=== PATIENT | female | born 1950 | race Two or more races ===

== ENCOUNTER 2017-11-11 16:15 | Inpatient (IN) | payer OTHER ==
[~2017-11-11] VITALS: Ht 160 cm; Wt 84.0 kg
[~2017-11-11 16:15] MED LIST: ALPR1TAB2 PO; AMIT10TA6; GABA-521; HYDR-2035; INSU70IN9 SC; LORA-655; MECL25CH20
[2017-11-11 17:47] LABS: Basophils # (auto) 0.1 uL; Basophils % (auto) 0.6 % (0.0-2.0); Eosinophils # (auto) 0 uL; Hematocrit 50.3 % (36.0-46.0); Hemoglobin 16.8 g/dL (12.2-16.2); Lymphocytes # (auto) 1.3 uL; Lymphocytes % (auto) 9.2 % (10.0-50.0); Mean Corpuscular Hgb Conc. 33.3 g/dL (32.0-36.0); Monocytes # (auto) 0.6 uL; Monocytes % (auto) 4.3 % (0.0-12.0); Neutrophils # (auto) 11.9 uL; Neutrophils % (auto) 85.9 % (37.0-80.0); Nucleated Red Blood Cells % 0.1 %; Platelet Count (auto) 247 10^3/uL (140-450); Red Cell Distribution Width 15.1 % (11.8-14.3); White Blood Cell 13.8 10^3/uL (4.4-10.8)
[2017-11-11 18:01] LABS: Alanine Aminotransferase 27 U/L (13-56); Albumin 3.8 g/dL (3.4-5.0); Anion Gap 15 (5-15); Calcium 9.6 mg/dL (8.5-10.1); Carbon Dioxide 21 mmol/L (21-32); Chloride 104 mmol/L (98-107); Glucose 398 mg/dL (74-106); Potassium 4.2 mmol/L (3.5-5.1); Sodium 140 mmol/L (136-145)
[2017-11-11 18:06] LABS: Alkaline Phosphatase 156 U/L (45-117); Aspartate Aminotransferase 14 U/L (15-37); BUN/Creatinine Ratio 22.2; Bilirubin, Total 0.6 mg/dL (0.2-1.0); Blood Urea Nitrogen 30 mg/dL (7-18); GFR African American 50 mL/min; GFR Non-African American 42 mL/min; Total Protein 8.3 g/dL (6.4-8.2)
[2017-11-11] MEDS ORDERED: SODIUM CHLORIDE 0.9% 1,000 ML IVB ONE (19:11)
[2017-11-11] MEDS ORDERED: SODIUM CHLORIDE 0.9% 2,000 ML IV ONE (19:15)
[2017-11-11 19:52] LABS: Magnesium 1.7 mg/dL (1.6-2.6)
[2017-11-11 20:02] LABS: INR 1.01 (0.9-1.15); Partial Thromboplastin Time 28.6 sec (23.78-33.04); Prothrombin Time 10.8 sec (9.27-12.13)
[2017-11-11] MEDS ORDERED: InsuLIN REG 1unit/0.01ml Soln (100units/ml) IV ONE (22:00)
[2017-11-11] MEDS ORDERED: MEPERIDINE HCL (25 MG/ML) 1ML VIAL IV ONE (22:00)
[2017-11-11] MEDS ORDERED: ONDANSETRON HCL 4 MG/2 ML VIAL IV ONE (22:00)
[2017-11-11] MEDS ORDERED: ACETAMINOPHEN 325 MG TAB PO PRN (23:00)
[2017-11-11] MEDS ORDERED: TEMAZEPAM 15 MG CAP PO PRN (23:00)
[2017-11-11] MEDS ORDERED: SODIUM CHLORIDE 0.9% 500 ML IV ONE (23:00)
[2017-11-11] MEDS ORDERED: LEVOFLOXACIN 500MG 100 ML IV ONE (23:00)
[2017-11-11] MEDS ORDERED: cloNIDine HCL 0.1 MG TAB PO ONE (23:00)
[2017-11-11] MEDS ORDERED: HYDROcodone-ACET 5/325MG TAB PO PRN (23:00)
[2017-11-11] MEDS ORDERED: DEXTROSE (50%) 50ML SYRG IV PRN (23:00)
[2017-11-11] MEDS ORDERED: SODIUM CHLORIDE 0.9% 1,000 ML IV SCH (23:00)
[2017-11-12] MEDS ORDERED: InsuLIN REG 1unit/0.01ml Soln (100units/ml) SC SCH
[2017-11-12] MEDS ORDERED: KETOROLAC TROMETH 30 MG/ML 1ML VIAL IV SCH (03:00)
[2017-11-12] MEDS ORDERED: DEXTROSE (50%) 50ML SYRG IV PRN (03:00)
[2017-11-12] MEDS: ACCU-CHEK COMFORT CURVE STRIP VI SCH ×7 (04:00→20:00)
[2017-11-12 04:06] LABS: Urine Bacteria FEW /hpf (None Seen); Urine Blood 1+ /uL (Negative); Urine Hyaline Cast FEW /lpf (0 - 2); Urine Mucus FEW (None Seen); Urine Specific Gravity 1.022 (1.001-1.035); Urine WBC 13 /hpf (0 - 5)
[2017-11-12 05:18] VITALS: BP 121/60
[2017-11-12] MEDS: InsuLIN REG 1unit/0.01ml Soln (100units/ml) SC SCH ×5 (05:21→20:36)
[2017-11-12 05:53] LABS: Basophils # (auto) 0.1 uL; Basophils % (auto) 0.4 % (0.0-2.0); Eosinophils # (auto) 0 uL; Eosinophils % (auto) 0.3 % (0.0-7.0); Hemoglobin 14.3 g/dL (12.2-16.2); Lymphocytes # (auto) 2.5 uL; Lymphocytes % (auto) 18.1 % (10.0-50.0); Mean Corpuscular Hemoglobin 29.7 pg (28.0-32.0); Mean Corpuscular Hgb Conc. 33.1 g/dL (32.0-36.0); Mean Corpuscular Volume 89.7 fL (80.0-100.0); Monocytes # (auto) 1.3 uL; Monocytes % (auto) 9.6 % (0.0-12.0); Neutrophils # (auto) 9.9 uL; Neutrophils % (auto) 71.6 % (37.0-80.0); Platelet Count (auto) 217 10^3/uL (140-450); Red Cell Distribution Width 14.7 % (11.8-14.3); White Blood Cell 13.8 10^3/uL (4.4-10.8)
[2017-11-12 06:05] LABS: Albumin 3.1 g/dL (3.4-5.0); Calcium 8.7 mg/dL (8.5-10.1); Potassium 3.8 mmol/L (3.5-5.1)
[2017-11-12 06:07] LABS: BUN/Creatinine Ratio 33.6
[2017-11-12 06:08] LABS: Bilirubin, Total 0.5 mg/dL (0.2-1.0); Total Protein 6.8 g/dL (6.4-8.2)
[2017-11-12] MEDS ORDERED: INSU1INJ3 SC (07:49)
[2017-11-12] MEDS ORDERED: HYDR-4798 PO (07:55)
[2017-11-12 09:00] VITALS: BP 86/56
[2017-11-12] MEDS ORDERED: PANTOPRAZOLE 40 MG TAB PO SCH (10:00)
[2017-11-12] MEDS ORDERED: LISINOPRIL 20 MG TAB PO SCH (10:00)
[2017-11-12] MEDS: LEVOFLOXACIN 250MG 50 ML IV SCH (10:08)
[2017-11-12] MEDS ORDERED: hydrALAZINE HCL 25 MG TAB PO PRN (12:30)
[2017-11-12] MEDS ORDERED: MAGNESIUM CITRATE SOLUTION 300 ML BTL PO ONE (12:30)
[2017-11-12] MEDS ORDERED: HYDROcodone-ACET 5/325MG TAB PO PRN (12:45)
[2017-11-12 13:00] VITALS: BP 136/65
[2017-11-12] MEDS: ONDANSETRON HCL 4 MG/2 ML VIAL IV PRN ×2 (16:29→22:02)
[2017-11-12 16:54] VITALS: BP 137/75
[2017-11-12] MEDS: SOD CHL 0.45% 1,000 ML IV SCH (18:03)
[2017-11-12] MEDS: PANTOPRAZOLE 40 MG TAB PO SCH (20:36)
[2017-11-12] MEDS: DOCUSATE SOD 100 MG CAP PO SCH (20:36)
[2017-11-12 21:55] VITALS: BP 148/79
[2017-11-13] VITALS (8 sets, daily range): BP systolic 69–208; BP diastolic 35–85
[2017-11-13] MEDS: ACCU-CHEK COMFORT CURVE STRIP VI SCH ×6 (00:13→20:00)
[2017-11-13] MEDS: InsuLIN REG 1unit/0.01ml Soln (100units/ml) SC SCH ×6 (00:31→20:00)
[2017-11-13] MEDS: SOD CHL 0.45% 1,000 ML IV SCH ×2 (00:47→13:47)
[2017-11-13] MEDS: ONDANSETRON HCL 4 MG/2 ML VIAL IV PRN ×2 (02:55→06:05)
[2017-11-13 05:40] LABS: Basophils # (auto) 0 uL; Basophils % (auto) 0.4 % (0.0-2.0); Eosinophils # (auto) 0.1 uL; Eosinophils % (auto) 1.2 % (0.0-7.0); Hemoglobin 14.1 g/dL (12.2-16.2); Lymphocytes # (auto) 2.4 uL; Lymphocytes % (auto) 23.9 % (10.0-50.0); Mean Corpuscular Hemoglobin 30.1 pg (28.0-32.0); Mean Corpuscular Hgb Conc. 33.5 g/dL (32.0-36.0); Mean Corpuscular Volume 89.8 fL (80.0-100.0); Monocytes % (auto) 9.6 % (0.0-12.0); Neutrophils # (auto) 6.6 uL; Neutrophils % (auto) 64.9 % (37.0-80.0); Nucleated Red Blood Cells % 0.1 %; Platelet Count (auto) 182 10^3/uL (140-450); Red Blood Cells 4.68 10^6/uL (4.0-5.20); Red Cell Distribution Width 14.4 % (11.8-14.3); White Blood Cell 10.2 10^3/uL (4.4-10.8)
[2017-11-13 05:48] LABS: Potassium 4.1 mmol/L (3.5-5.1)
[2017-11-13 05:53] LABS: BUN/Creatinine Ratio 31.3; Calcium 8.4 mg/dL (8.5-10.1); Magnesium 2.7 mg/dL (1.6-2.6)
[2017-11-13 05:56] LABS: Bilirubin, Total 0.6 mg/dL (0.2-1.0); Total Protein 6.4 g/dL (6.4-8.2)
[2017-11-13] MEDS ORDERED: LIDOCAINE VISCOUS 2% 15ML UD ONE (08:21)
[2017-11-13] MEDS ORDERED: MIDAZOLAM HCL 5 MG/ML-1ML VIAL ONE (08:21)
[2017-11-13] MEDS ORDERED: fentaNYL CITRATE 100 MCG/2 ML VL ONE ×3 (08:22→11:00)
[2017-11-13] MEDS ORDERED: SODIUM CHLORIDE LOCK 10 ML ONE (08:22)
[2017-11-13] MEDS ORDERED: diphenhdrAMINE HCL 50 MG/1 ML VL ONE (08:22)
[2017-11-13] MEDS: DOCUSATE SOD 100 MG CAP PO SCH ×2 (10:00→22:58)
[2017-11-13] MEDS: PANTOPRAZOLE 40 MG TAB PO SCH (10:00)
[2017-11-13] MEDS: LEVOFLOXACIN 250MG 50 ML IV SCH (10:11)
[2017-11-13] MEDS ORDERED: PROPOFOL 10 MG/ML 20 ML IV ONE (11:00)
[2017-11-13] MEDS: ONDANSETRON HCL 4 MG/2 ML VIAL IV ONE ×2 (11:28→11:30)
[2017-11-13] MEDS ORDERED: ePHEDrine SULFATE 50 MG/ML AMP IV PRN (11:30)
[2017-11-13] MEDS ORDERED: hydrALAZINE HCL 20 MG/ML VL IV PRN ×2 (11:30→13:00)
[2017-11-13] MEDS ORDERED: hydrALAZINE HCL 20 MG/ML VL ONE (11:39)
[2017-11-13] MEDS ORDERED: hydrALAZINE HCL 20 MG/ML VL IV ONE (11:45)
[2017-11-13] MEDS ORDERED: fentaNYL CITRATE 100 MCG/2 ML VL IV ONE (12:00)
[2017-11-13] MEDS: ALPRAZolam 0.5 MG TAB PO SCH ×2 (12:26→22:57)
[2017-11-13] MEDS: SUCRALFATE 1 GM/10 ML ORAL SUSP PO SCH ×3 (12:27→22:56)
[2017-11-13] MEDS ORDERED: LISINOPRIL 10 MG TAB PO SCH (13:00)
[2017-11-13] MEDS ORDERED: HYDROmorphone HCL 2 MG/ML VL IV PRN (13:00)
[2017-11-13] MEDS ORDERED: PANTOPRAZOLE 40 MG/10 ML VIAL IV ONE (13:15)
[2017-11-13] MEDS: GABAPENTIN 300 MG CAP PO SCH ×2 (13:36→22:57)
[2017-11-13] MEDS ORDERED: PROMETHAZINE HCL 25 MG/ML 1ML IV PRN (14:45)
[2017-11-13] MEDS: PANTOPRAZOLE 40 MG/10 ML VIAL IV SCH (22:57)
[2017-11-13] MEDS ORDERED: SODIUM CHLORIDE 0.9% 1,000 ML IV ONE (23:00)
[2017-11-14] VITALS (12 sets, daily range): BP systolic 84–116; BP diastolic 42–89
[2017-11-14] MEDS: ACCU-CHEK COMFORT CURVE STRIP VI SCH ×6 (00:40→21:31)
[2017-11-14] MEDS: InsuLIN REG 1unit/0.01ml Soln (100units/ml) SC SCH ×6 (00:40→21:31)
[2017-11-14] MEDS: SUCRALFATE 1 GM/10 ML ORAL SUSP PO SCH ×4 (05:38→21:32)
[2017-11-14] MEDS: GABAPENTIN 300 MG CAP PO SCH (05:53)
[2017-11-14] MEDS: SOD CHL 0.45% 1,000 ML IV SCH ×2 (05:55→18:38)
[2017-11-14 06:50] LABS: BUN/Creatinine Ratio 20.5
[2017-11-14] MEDS ORDERED: SODIUM CHLORIDE 0.9% 250 ML IV ONE ×2 (07:30→11:15)
[2017-11-14] MEDS ORDERED: hydrALAZINE HCL 25 MG TAB PO PRN (07:30)
[2017-11-14] MEDS: PANTOPRAZOLE 40 MG/10 ML VIAL IV SCH ×2 (08:47→21:32)
[2017-11-14] MEDS: LEVOFLOXACIN 250MG 50 ML IV SCH (08:47)
[2017-11-14] MEDS: DOCUSATE SOD 100 MG CAP PO SCH ×2 (08:53→21:32)
[2017-11-14 16:06] LABS: BUN/Creatinine Ratio 25.6; Calcium 8.2 mg/dL (8.5-10.1); Potassium 4.1 mmol/L (3.5-5.1)
[2017-11-15] MEDS: ACCU-CHEK COMFORT CURVE STRIP VI SCH ×2 (00:20→04:40)
[2017-11-15] MEDS: InsuLIN REG 1unit/0.01ml Soln (100units/ml) SC SCH ×2 (00:33→03:45)
[2017-11-15 01:35] VITALS: BP 130/87
[2017-11-15 05:28] LABS: Basophils # (auto) 0.1 uL; Basophils % (auto) 0.6 % (0.0-2.0); Eosinophils # (auto) 0.2 uL; Eosinophils % (auto) 1.7 % (0.0-7.0); Hemoglobin 13.6 g/dL (12.2-16.2); Lymphocytes # (auto) 2.4 uL; Lymphocytes % (auto) 24.7 % (10.0-50.0); Mean Corpuscular Hemoglobin 30.1 pg (28.0-32.0); Mean Corpuscular Hgb Conc. 33.1 g/dL (32.0-36.0); Mean Corpuscular Volume 90.8 fL (80.0-100.0); Monocytes # (auto) 0.8 uL; Monocytes % (auto) 8.6 % (0.0-12.0); Neutrophils # (auto) 6.2 uL; Neutrophils % (auto) 64.4 % (37.0-80.0); Nucleated Red Blood Cells % 0.2 %; Platelet Count (auto) 171 10^3/uL (140-450); Red Blood Cells 4.52 10^6/uL (4.0-5.20); Red Cell Distribution Width 14.8 % (11.8-14.3); White Blood Cell 9.6 10^3/uL (4.4-10.8)
[2017-11-15 05:44] LABS: Albumin 2.8 g/dL (3.4-5.0); Bilirubin, Total 0.4 mg/dL (0.2-1.0); Calcium 8.3 mg/dL (8.5-10.1); Magnesium 2.7 mg/dL (1.6-2.6); Potassium 4.4 mmol/L (3.5-5.1); Total Protein 6.1 g/dL (6.4-8.2)
[2017-11-15 05:47] VITALS: BP 134/78
[2017-11-15] MEDS: SUCRALFATE 1 GM/10 ML ORAL SUSP PO SCH (06:54)
[2017-11-15 09:00] VITALS: BP 126/73
[2017-11-15] MEDS ORDERED: FUROSEMIDE 20 MG/2 ML VIAL IV SCH (10:00)
== END 2017-11-15 10:05 | disposition home health service (06) | DRG 291 ==
LOC: EDUNIT# 16:15 → EDBD 16:15 → ER 16:28 → WEST WING 16:29 → TELE-WESTW 11-13 14:39
PROVIDERS: ADMIT Nurse Practitioner; ATTEND Family Medicine
PROC: 0DB68ZX Excision of Stomach, Via Natural or Artificial Opening Endoscopic, Diagnostic (ICD-10-PCS; principal; 2017-11-13 10:50)
DX: I11.0 Hypertensive heart disease with heart failure (principal); N17.0 Acute kidney failure with tubular necrosis; N39.0 Urinary tract infection, site not specified; E11.42 Type 2 diabetes mellitus with diabetic polyneuropathy; E11.610 Type 2 diabetes mellitus with diabetic neuropathic arthropathy; E11.65 Type 2 diabetes mellitus with hyperglycemia; E86.0 Dehydration; I25.10 Atherosclerotic heart disease of native coronary artery without angina pectoris; I50.9 Heart failure, unspecified; K21.9 Gastro-esophageal reflux disease without esophagitis; K29.70 Gastritis, unspecified, without bleeding; K44.9 Diaphragmatic hernia without obstruction or gangrene; K52.9 Noninfective gastroenteritis and colitis, unspecified; E78.5 Hyperlipidemia, unspecified; N18.9 Chronic kidney disease, unspecified; E11.22 Type 2 diabetes mellitus with diabetic chronic kidney disease; Z80.0 Family history of malignant neoplasm of digestive organs; Z82.49 Family history of ischemic heart disease and other diseases of the circulatory system; Z87.442 Personal history of urinary calculi; Z90.710 Acquired absence of both cervix and uterus; Z95.1 Presence of aortocoronary bypass graft; Z83.3 Family history of diabetes mellitus; Z88.5 Allergy status to narcotic agent; Z88.0 Allergy status to penicillin; Z79.4 Long term (current) use of insulin; Z79.899 Other long term (current) drug therapy; Z90.49 Acquired absence of other specified parts of digestive tract; Z98.51 Tubal ligation status; Z90.89 Acquired absence of other organs
CPT/HCPCS: 36415; 43239; 71045; 74176; 80048; 80053; 81001; 82150; 82962; 83036; 83605; 83690; 83735; 84484; 85025; 85610; 85730; 87045; 87070; 87086; 87205; 87899; 93005; 94761; 96361; 96374; 96375; 97163; A6257; C9113; J1815; J1885; J1956; J2250; J2405; J2704